=== PATIENT | male | born 1975 | race African-American/Black ===

== ENCOUNTER 2019-10-06 10:31 | Emergency (ER) | payer BC ==
[~2019-10-06] VITALS: Ht 182.9 cm; Wt 89.8 kg
[2019-10-06 11:29] VITALS: BP 134/69
[2019-10-06] MEDS ORDERED: ACETAMINOPHEN 500 MG TABLET PO ONE (11:45)
--- NOTE | 2019-10-06 12:25 | RAD ---
EXAM: Right wrist, 3 views; lumbar spine, 3 views; right knee, 3 views. HISTORY: Wrestling injury. COMPARISON: None. FINDINGS: Right wrist: 3 views of the right wrist are obtained. There is a tiny corticated ossicle adjacent to the triquetrum, likely due to a chronic nonunited fracture fragment. No acute fracture is seen. Lumbar spine: 3 views of the lumbar spine are obtained. There are 5 nonrib-bearing lumbar segments. There is no listhesis. The vertebral bodies are normal in height and the disc spaces are preserved. Right knee: 3 views of the right knee are obtained. There is mild medial compartment spurring. There is no fracture, dislocation or subluxation. There is trace joint fluid without a significant effusion. IMPRESSION: No acute osseous finding. Electronically signed by: Aviva Frias MD (10/06/2019 12:22 PM) [facility]
[2019-10-06] MEDS ORDERED: CYCL10TA2 PO (12:55)
--- NOTE | 2019-10-06 12:55 | PHYS DOC ---
Past Medical History Past Medical History: Other Additional Past Medical Histor: CLUSTER HEADACHES, Past Surgical History: Other Additional Past Surgical Histo: RIGHT SHOULDER,RIGHT KNEE,RIGHT ELBOW Alcohol Use: None Drug Use: None Adult General Chief Complaint Chief Complaint: MECHANICAL FALL HPI HPI Patient is a 44 year old AA male who presents to the emergency department with complaints of lateral right wrist pain, right elbow pain, right knee pain, left sided neck pain, and low back pain after slipping and falling down 6-8 carpeted stairs this morning. Patient currently rates his pain a 7 out of 10 on the pain scale he denies any numbness, tingling, or weakness. Patient denies any loss of bowel/bladder control, or saddle anesthesia. He was on his way to take his son to the ER when he accidentally slipped and fell. Patient denies any loss of consciousness, head injury, nausea, or vomiting. He has not taken anything for relief of pain prior to arrival. Review of Systems Review of Systems Constitutional: Denies fever or chills [] Eyes: Denies change in visual acuity, redness, or eye pain [] HENT: Denies nasal congestion or sore throat [] Respiratory: Denies cough or shortness of breath [] Cardiovascular: No additional information not addressed in HPI [] GI: Denies abdominal pain, nausea, vomiting, bloody stools or diarrhea [] : Denies dysuria or hematuria [] Musculoskeletal: Denies back pain or joint pain [] Integument: Denies rash or skin lesions [] Neurologic: Denies headache, focal weakness or sensory changes [] Endocrine: Denies polyuria or polydipsia [] All other systems were reviewed and found to be within normal limits, except as documented in this note. Current Medications Current Medications Current Medications Medications (Trade) Dose Ordered Sig/Artemio Start Time Stop Time Status Last Admin Dose Admin Acetaminophen (Tylenol) 1,000 mg 1X ONCE 10/06/19 11:45 10/06/19 11:47 DC 10/06/19 12:06 1,000 MG Allergies Allergies Allergies Coded Allergies Type Severity Reaction Last Updated Verified hydrocodone Allergy Severe THROAT SWELLING 10/06/19 Yes naproxen Allergy Severe THROAT SWELLING 10/06/19 Yes Physical Exam Physical Exam Constitutional: Well developed, well nourished, no acute distress, non-toxic appearance. [] HENT: Normocephalic, atraumatic, bilateral external ears normal, nose normal. [] Eyes: PERRLA, EOMI, conjunctiva normal, no discharge. [] Neck: Normal range of motion, no bony tenderness, supple, no stridor; L trapezius TTP . [] Cardiovascular:Heart rate regular rhythm, no murmur [] Lungs & Thorax: Respirations even and unlabored, no retractions, no respiratory distress Skin: Warm, dry, no erythema, no rash, no bruising. [] Back: Lumbar TTP, No cervical or thoracic bony tenderness, no CVA tenderness; . [] Extremities: No cyanosis, no clubbing, no edema; R wrist TTP laterally, no de formity, no crepitus; ROM limited due to pain; R elbow non-tender to palpation, full ROM, no crepitus; R knee anterior TTP, no crepitus, no deformity, ROM intact, negative anterior and posterior drawer testing Neurologic: Alert and oriented X 3, no focal deficits noted. [] Psychologic: Affect normal, judgement normal, mood normal. [] Current Patient Data Vital Signs Vital Signs Date Time Temp Pulse Resp B/P (MAP) Pulse Ox O2 Delivery O2 Flow Rate FiO2 10/06/19 11:29 98.2 66 18 134/69 (90) 98 Room Air 98.2 EKG EKG [] Radiology/Procedures Radiology/Procedures PROCEDURE: KNEE RIGHT 3V EXAM: Right wrist, 3 views; lumbar spine, 3 views; right knee, 3 views. HISTORY: Wrestling injury. COMPARISON: None. FINDINGS: Right wrist: 3 views of the right wrist are obtained. There is a tiny corticated ossicle adjacent to the triquetrum, likely due to a chronic nonunited fracture fragment. No acute fracture is seen. Lumbar spine: 3 views of the lumbar spine are obtained. There are 5 nonrib-bearing lumbar segments. There is no listhesis. The vertebral bodies are normal in height and the disc spaces are preserved. Right knee: 3 views of the right knee are obtained. There is mild medial compartment spurring. There is no fracture, dislocation or subluxation. There is trace joint fluid without a significant effusion. IMPRESSION: No acute osseous finding.[] PROCEDURE: LUMBAR SPINE 2-3V EXAM: Right wrist, 3 views; lumbar spine, 3 views; right knee, 3 views. HISTORY: Wrestling injury. COMPARISON: None. FINDINGS: Right wrist: 3 views of the right wrist are obtained. There is a tiny corticated ossicle adjacent to the triquetrum, likely due to a chronic nonunited fracture fragment. No acute fracture is seen. Lumbar spine: 3 views of the lumbar spine are obtained. There are 5 nonrib-bearing lumbar segments. There is no listhesis. The vertebral bodies are normal in height and the disc spaces are preserved. Right knee: 3 views of the right knee are obtained. There is mild medial compartment spurring. There is no fracture, dislocation or subluxation. There is trace joint fluid without a significant effusion. IMPRESSION: No acute osseous finding. Course & Med Decision Making Course & Med Decision Making Pertinent Labs and Imaging studies reviewed. (See chart for details) Patient is a 44-year-old male who presented to the emergency department with multiple complaints after sliding down some carpeted stairs on his butt this morning when he slipped and fell. X-rays of the right wrist, right knee, and lumbar spine were negative for any acute findings. He was given 1000 mg of Tylenol or pain in the ER. Physical exam of the right elbow, left wrist, neck, and upper back did not warrant x-rays. Pt was tender to palpation along his left trapezius muscle. A prescription was written for Flexeril. The patient was placed in a Velcro wrist splint for the right wrist pain. He was instructed to follow-up with his primary care doctor if symptoms persisted, return to the ER if symptoms worsen. Pt verbalized an understanding of home care, medications, follow-up, and return to ED instructions and was in agreement with the plan of care. [] Dragon Disclaimer Dragon Disclaimer This electronic medical record was generated, in whole or in part, using a voice recognition dictation system. Departure Departure Impression: Primary Impression: Strain of left trapezius muscle Additional Impressions: Right wrist pain Right anterior knee pain Low back pain Fall down stairs Contusion of right elbow, initial encounter Disposition: HOME, SELF-CARE Condition: STABLE Referrals: UNKNOWN PCP NAME (PCP) CINDY GREEN MD Patient Instructions: Back Pain, Adult, [id number], Cervical Strain and Sprain with Rehab-Sports[facility], Elbow Contusion, [id number], Knee Pain, [id number], Wrist Pain, Wrist Pain, [id number] Additional Instructions: Fill prescription(s) and use as directed. Recommend application of ice, elevation, and rest of affected extremity. Wear the splint that was placed as needed for comfort or until follow up appointment. Follow up with Dr. Green if symptoms persist, return to the ER if your symptoms worsen. Scripts Cyclobenzaprine Hcl (CYCLOBENZAPRINE HCL) 10 Mg Tablet 1 TAB PO TID PRN for PAIN for 10 Days, #30 TAB 0 Refills Prov: ANDREA RUSSO APRN 10/06/19 Splinting Splinting : Location: R wrist Pre-Made Type: velcro Splint: wrist Pre-Proc Neuro Vasc Exam: normal Post-Proc Neuro Vasc Exam: normal, unchanged from pre-exam Problem Qualifiers Primary Impression: Strain of left trapezius muscle Encounter type: initial encounter Qualified Codes: S46.812A - Strain of ot her muscles, fascia and tendons at shoulder and upper arm level, left arm, initial encounter Additional Impressions: Low back pain Chronicity: acute Back pain laterality: midline Sciatica presence: without sciatica Qualified Codes: M54.5 - Low back pain Fall down stairs Encounter type: initial encounter Qualified Codes: W10.8XXA - Fall (on) (from) other stairs and steps, initial encounter ANDREA RUSSO APRN Oct 06, 2019 12:55
== END 2019-10-06 13:15 | disposition home or self-care (01) ==
LOC: ER 10:31
DX: S46.812A Strain of other muscles, fascia and tendons at shoulder and upper arm level, left arm, initial encounter (principal); S50.01XA Contusion of right elbow, initial encounter; M54.5 Low back pain; M25.561 Pain in right knee; M25.531 Pain in right wrist; Z88.5 Allergy status to narcotic agent; W10.8XXA Fall (on) (from) other stairs and steps, initial encounter; Y93.89 Activity, other specified; Y92.89 Other specified places as the place of occurrence of the external cause; Y99.8 Other external cause status
CPT/HCPCS: 29125; 72100; 73110; 73562; 99284